=== PATIENT | male | born 1980 | race Hispanic/Latino ===

== ENCOUNTER 2025-02-18 07:02 | Day surgery (SDC) | payer BC ==
[~2025-02-18] VITALS: Ht 177.8 cm; Wt 102.5 kg
[2025-02-18] VITALS (11 sets, daily range): BP systolic 108–137; BP diastolic 66–92; PULSE 67–92; RESP 15–18; TEMP 97.6–99.2
[2025-02-18] MEDS: 0.9%NACL 1000ML 1,000 ML IV ONE (07:31)
[2025-02-18] MEDS ORDERED: GLYCOPYRROLATE 0.2 MG/ML 5 ML VIAL ONE (10:07)
--- NOTE | 2025-02-18 10:41 | OP ---
Operative Note: DATE OF PROCEDURE: 02/18/25 SURGEON: SHANICE BETTS MD [employer] SECRETARY: [] ANESTHESIA: [] Conscious sedation ANESTHESIOLOGIST/DIFFUSION FURNACE OPERATOR: [] PREOPERATIVE DIAGNOSIS: [] Abdominal pain POSTOPERATIVE DIAGNOSIS: [] The same Small hiatal hernia SYNOPSIS: [] PROCEDURE: [] Upper endoscopy colonoscopy ESTIMATED BLOOD LOSS: [] INDICATIONS: [] DESCRIPTION OF PROCEDURE: []With the patient in conscious sedation I inserted the endoscope through the mouth. We advanced this to the esophagus was completely normal. Z-line was at 35 cm. A small hiatal hernia was encountered. We entered the stomach and insufflated with air I was able to visualize the pylorus and placed the endoscope through the second portion of the duodenum. There was normal anatomy and no pathology. I took biopsies of the antrum. I retrieved the scope and a saw the stomach there was completely normal in the antrum. I retroflexed it and examined the body and fundus and there was no pathology. Before retrieving the scope I suctioned all the fluid and air. Attention was given now to the rectal area. Rectal exam was completely normal and prostate was normal. I inserted the scope in usual fashion and advanced it visualized in the colon. I insufflated with air and the preparation was good. I was able to reach the cecum and then I retrieved the scope slowly carefully seen the whole colon. No pathology was seen. Procedure was completed without any complication SHANICE BETTS MD Feb 18, 2025 10:41
== END 2025-02-18 11:40 | disposition home or self-care (01) ==
LOC: DAH 07:02 → ENDO 07:02
PROVIDERS: ATTEND Surgery
DX: Z12.11 Encounter for screening for malignant neoplasm of colon (principal); K29.50 Unspecified chronic gastritis without bleeding; K44.9 Diaphragmatic hernia without obstruction or gangrene; K21.9 Gastro-esophageal reflux disease without esophagitis
CPT/HCPCS: 88305; 88312; 43239; 45378; J7030; J2704 ×2; J3490; A4620; A4215